=== PATIENT | male | born 1995 | race Caucasian/White ===

== ENCOUNTER 2016-06-19 08:56 | Day surgery (SDC) | payer BC ==
[2016-06-17 13:05] VITALS: BMI 41.5
[~2016-06-19 08:56] MED LIST: LACTATED RINGERS 1,000 ML IV SCH
[2016-06-19 09:19] VITALS: RESP 16; TEMP 97.9
[2016-06-19] MEDS ORDERED: PROPOFOL 10 MG/ML 20 ML VIAL IV ONE (09:58)
[2016-06-19] MEDS ORDERED: LIDOCAINE 1% INJ 10MG/ML (20 ML MDV) ONE (09:58)
--- NOTE | 2016-06-19 10:20 | P.PCN ---
Date of Procedure: 06/19/16 Procedure(s) Performed: Brief history: Patient is a pleasant 31-year-old white male, scheduled for an elective upper endoscopy as well as colonoscopy as a part of evaluation of lung setting history of GERD and intermittent rectal bleeding for the last few months duration. Procedure performed: Esophagogastroduodenoscopy with biopsy Colonoscopy Preoperative diagnosis: GERD Rectal bleeding Anesthesia: MAC Procedure: After informed consent was obtained from the patient was brought into the endoscopy unit and IV conscious sedation was administered by anesthesia under continuous monitoring. Initially upper endoscopy was done. The Olympus GF 160 video endoscope was inserted inserted into the mouth and esophagus intubated without any difficulty and was gradually advanced into the stomach and duodenum and carefully examined. The bulb and second part of the duodenum appeared normal. The scope was then withdrawn into the stomach adequately insufflated with air and upon careful examination the antrum had mild gastritis and biopsies were done from this area. The body, cardia and fundus appeared normal. The scope was then withdrawn into the esophagus. The GE junction was located at 40 cm to the incisors. It appeared regular with mild erythema and one superficial erosions consistent with LA grade a reflux esophagitis. Rest of the esophagus appeared normal. Patient tolerated the procedure well. At this time the patient continued to remain sedation. Initial digital rectal examination was normal. Olympus CF 160 video colonoscope was then inserted into the rectum and gradually advanced to the cecum without any difficulty. Careful examination was performed as the scope was gradually being withdrawn. The prep was excellent. The cecum, ascending colon, transverse colon, descending colon, sigmoid colon and rectum appeared normal. Retroflexion was performed in the rectum angrade 2 internal hemorrhoidsere noted. Patient tolerated the procedure well. Impression: 1. Upper endoscopy revealed mild antral gastritis and LA grade a reflux esophagitis. 2. Colonoscopy revealed grade 2 internal hemorrhoids. No evidence of colorectal neoplasia or colitis. Recommendations: Findings of this examination were discussed with the patient as well as his family. he was advised to follow with the biopsy results. He will continue with Prilosec 20 mg daily as needed and follow antireflux measures. He was also advised to be a high-fiber diet and take fiber supplements if needed if he has any constipation
[2016-06-19 10:49] VITALS: BP 113/78; PULSE 83
== END 2016-06-19 11:32 | disposition home or self-care (01) ==
LOC: ORWHC2ENDO 08:56
PROVIDERS: ATTEND Internal Medicine Gastroenterology
DX: K21.0 Gastro-esophageal reflux disease with esophagitis (principal); K29.70 Gastritis, unspecified, without bleeding; K64.1 Second degree hemorrhoids; Z87.19 Personal history of other diseases of the digestive system; Z79.899 Other long term (current) drug therapy
CPT/HCPCS: 88305; 88342; 45378; 43239; J2001; J2704; 99153